=== PATIENT | male | born 1960 | race Caucasian/White ===

== ENCOUNTER 2019-07-21 06:05 | Emergency (ER) | payer BC ==
[2019-07-21] MEDS ORDERED: MECLIZINE HCL 12.5 MG TAB ONE (06:42)
[2019-07-21] MEDS ORDERED: DIAZEPAM 10 MG/2 ML INJ SYRINGE ONE (06:44)
[2019-07-21 06:55] LABS: Absolute Lymphocytes (CBC) 1.5 K/uL (0.7-4.9); Basophils % 0.9 % (0-1.3); Hematocrit 45.7 % (39.6-49.0); Lymphocytes % 19.5 % (15.3-44.8); MPV 8.9 fL (7.6-11.3); Protime INR 0.89
[2019-07-21 06:56] LABS: ALT/SGPT 33 U/L (12-78); AST/SGOT 24 U/L (15-37); Albumin 4.1 g/dL (3.4-5.0); Alkaline Phosphatase 65 U/L (45-117); BUN Blood Urea Nitrogen 24 mg/dL (7-18); Bicarbonate 25 mmol/L (21-32); Bilirubin Direct 0.1 mg/dL (0-0.2); Bilirubin Total 0.5 mg/dL (0.2-1.0); Glucose Level 128 mg/dL (74-106); Magnesium 1.9 mg/dL (1.8-2.4); NT PRO-BNP 11 pg/mL (<125); Potassium 4.1 mmol/L (3.5-5.1); Protein, Total 7.1 g/dL (6.4-8.2); Sodium Level 140 mmol/L (136-145); Troponin (Emerg Dept Use Only) < 0.02 ng/mL (0.0-0.045)
--- NOTE | 2019-07-21 07:08 | RAD REPORT ---
EXAM DESCRIPTION: CT - Head Brain Wo Cont - 07/21/2019 7:02 am CLINICAL HISTORY: Weakness, dizziness COMPARISON: None. TECHNIQUE: Axial 5 mm thick images of the head were obtained without IV contrast. All CT scans are performed using dose optimization technique as appropriate and may include automated exposure control or mA/KV adjustment according to patient size. FINDINGS: No intracranial hemorrhage, mass, edema or shift of mid-line structures. No acute infarcti on changes seen. No measurable atrophy. Minimal chronic ischemic changes are evident. Ventricles are normal. Mastoid air cells and visualized portions of the paranasal sinuses are clear. No acute bony findings. IMPRESSION: Negative non-contrast CT head examination for acute finding.
--- NOTE | 2019-07-21 11:00 | EDPHYS ---
Physician Documentation [facility] Name: Timmy Cooley Jr Age: 59 yrs Sex: Male : 1960 Arrival Date: 07/21/2019 Time: 06:07 Bed 7 Private MD: ED Physician Patric Estrada HPI: 07/21 07:16 This 59 yrs old Male presents to ER via Wheelchair with complaints of Chest jr8 Pain, Dizziness. 07:16 The patient presents with feeling off balance. Onset: The symptoms/episode jr8 began/occurred acutely, this morning. Context: occurred at home, occurred while the patient was at rest, lying down. Modifying factors: The symptoms are alleviated by nothing, the symptoms are aggravated by movement of head, standing up, changing position. Associated signs and symptoms: Pertinent positives: diaphoresis, palpitations. Severity of symptoms: At their worst the symptoms were moderate in the emergency department the symptoms are unchanged. Patient's baseline: Neuro: alert and fully oriented, Motor: no deficits, Ambulation: walks without assistance, Speech: normal. The patient has not experienced similar symptoms in the past. The patient has not recently seen a physician. Patient stated that he has had vertigo in the past which this feels like but also had palpitation feeling with diaphoresis and weakness feeling which he has never had before. Stated that it felt like his heart had "gas". . Historical: - Allergies: 06:19 No Known Allergies; ak1 - Home Meds: 06:19 allopurinol 300 mg Oral tab 1 tab once daily for Gout [Active]; meloxicam 15 mg oral ak1 tab 1 tab once daily [Active]; - PMHx: 06:19 Gout; ak1 - PSHx: 06:19 Appendectomy; Cholecystectomy; Tonsillectomy; Carpal Tunnel Repair; shoulder sx; ak1 - Immunization history:: Adult Immunizations unknown. - Social history:: Smoking status: Patient uses tobacco products, vapes. - Ebola Screening: : No symptoms or risks identified at this time. ROS: 07:16 Eyes: Negative for injury, pain, redness, and discharge, ENT: Negative for injury, jr8 pain, and discharge, Neck: Negative for injury, pain, and swelling, Respiratory: Negative for shortness of breath, cough, wheezing, and pleuritic chest pain, Abdomen/GI: Negative for abdominal pain, nausea, vomiting, diarrhea, and constipation, Back: Negative for injury and pain, MS/Extremity: Negative for injury and deformity, Skin: Negative for injury, rash, and discoloration. 07:16 Cardiovascular: Positive for chest pain, palpitations. 07:16 Neuro: Positive for dizziness, gait disturbance. Exam: 07:16 Eyes: Pupils equal round and reactive to light, extra-ocular motions intact. Lids and jr8 lashes normal. Conjunctiva and sclera are non-icteric and not injected. Cornea within normal limits. Periorbital areas with no swelling, redness, or edema. ENT: Nares patent. No nasal discharge, no septal abnormalities noted. Tympanic membranes are normal and external auditory canals are clear. Oropharynx with no redness, swelling, or masses, exudates, or evidence of obstruction, uvula midline. Mucous membranes moist. Neck: Trachea midline, no thyromegaly or masses palpated, and no cervical lymphadenopathy. Supple, full range of motion without nuchal rigidity, or vertebral point tenderness. No Meningismus. Cardiovascular: Regular rate and rhythm with a normal S1 and S2. No gallops, murmurs, or rubs. Normal PMI, no JVD. No pulse deficits. Respiratory: Lungs have equal breath sounds bilaterally, clear to auscultation and percussion. No rales, rhonchi or wheezes noted. No increased work of breathing, no retractions or nasal flaring. Abdomen/GI: Soft, non-tender, with normal bowel sounds. No distension or tympany. No guarding or rebound. No evidence of tenderness throughout. Back: No spinal tenderness. No costovertebral tenderness. Full range of motion. Skin: Warm, dry with normal turgor. Normal color with no rashes, no lesions, and no evidence of cellulitis. MS/ Extremity: Pulses equal, no cyanosis. Neurovascular intact. Full, normal range of motion. 07:16 Neuro: Orientation: to person, place, time \\T\\ situation. Mentation: is normal, Memory: is normal, immediate memory is intact, recent memory is intact, remote memory is intact, Cranial nerves: CN I not tested, CN II- XII are normal as tested, visual ramirez are intact. extraocular movements are intact, Facial palsy and sensory deficits are absent. Nystagmus is absent. Cerebellar function: normal finger to nose testing, heel to amaya testing is normal, Motor: moves all fours, strength is 5/5 in all extremities, Sensation: no obvious gross deficits, Gait: not tested. seizure activity, is not displayed by the patient, Abnormal movements: there are no abnormal movements. Vital Signs: 06:16 BP 127 / 91; Pulse 69; Resp 22; Temp 97.8; Pulse Ox 94% on R/A; Weight 136.08 kg (R); ak1 Height 6 ft. 1 in. (185.42 cm) (R); Pain 0/10; 06:41 BP 138 / 87; Pulse 64; Resp 17; Pulse Ox 92% on R/A; Pain 0/10; tl1 07:55 BP 126 / 86; Pulse 55; Resp 17; Pulse Ox 96% on R/A; Pain 0/10; sg 08:48 BP 128 / 90; Pulse 52; Resp 17; Pulse Ox 99% on R/A; sg 09:58 BP 129 / 93 LA Supine (auto/reg); Pulse 55; Pulse Ox 95% ; mb4 10:00 Temp 98.9; sg 10:34 BP 129 / 85; Pulse 60 MON; Resp 17 S; Pulse Ox 95% on R/A; sg 06:16 Body Mass Index 39.58 (136.08 kg, 185.42 cm) ak1 MDM: 06:09 Patient medically screened. jr8 08:11 ED course: Patient more relaxed but still feeling dizzy . jr8 10:58 Data reviewed: vital signs, nurses notes, lab test result(s), EKG, radiologic studies, jr CT scan, MRI, plain films. Data interpreted: Pulse oximetry: on room air is 95 %. Interpretation: normal. Counseling: I had a detailed discussion with the patient and/or guardian regarding: the historical points, exam findings, and any diagnostic results supporting the discharge/admit diagnosis, lab results, radiology results, the need for outpatient follow up, a family practitioner, to return to the emergency department if symptoms worsen or persist or if there are any questions or concerns that arise at home. Response to treatment: the patient's symptoms have markedly improved after treatment. ED course: Patient feeling better after medication now. MRI negative. Labs unremarkable. Will send home with vertigo medications . 07/21 06:14 Order name: Basic Metabolic Panel; Complete Time: 07:11 07/21 06:14 Order name: CBC with Diff; Complete Time: 07:11 07/21 06:14 Order name: LFT's; Complete Time: 07:11 07/21 06:14 Order name: Magnesium; Complete Time: 07:11 07/21 06:14 Order name: NT PRO-BNP; Complete Time: 07:11 07/21 06:14 Order name: PT-INR; Complete Time: 07:36 07/21 06:14 Order name: Troponin (emerg Dept Use Only); Complete Time: 07:11 07/21 06:14 Order name: XRAY Chest (1 view) 07/21 06:14 Order name: EKG; Complete Time: 06:17 07/21 06:14 Order name: Cardiac monitoring; Complete Time: 06:07/21 06:31 Order name: CT Head Brain wo Cont; Complete Time: 07:11 07/21 08:11 Order name: MRI - Brain Wo Cont 07/21 06:14 Order name: EKG - Nurse/Tech; Complete Time: 06:07/21 06:14 Order name: IV Saline Lock; Complete Time: 06:07/21 06:14 Order name: Labs collected and sent; Complete Time: 06:07/21 06:14 Order name: O2 Per Protocol; Complete Time: 06:07/21 06:14 Order name: O2 Sat Monitoring; Complete Time: 06: Administered Medications: 06:42 Drug: Meclizine 25 mg Route: PO; tl1 07:30 Follow up: Response: No adverse reaction sg 06:43 Drug: Valium 2 mg Route: IVP; Infused Over: 2 mins; Site: right antecubital; tl1 07:30 Follow up: Response: No adverse reaction sg Disposition: 11:28 Co-signature as Attending Physician, Patric Estrada MD I agree with the assessment and charles plan of care. Disposition: 07/21/19 10:59 Discharged to Home. Impression: Other peripheral vertigo. - Condition is Stable. - Prescriptions for Meclizine 25 mg Oral Tablet - take 1 tablet by ORAL route every 8 hours As needed; 30 tablet. Valium 2 mg Oral Tablet - take 1 tablet by ORAL route every 8 hours As needed; 20 tablet. - Work release form, Medication Reconciliation Form, Thank You Letter, Antibiotic Education, Prescription Opioid Use form. - Follow up: Private Physician; When: 5 - 6 days; Reason: Recheck today's complaints, Continuance of care, Re-evaluation by your physician. - Problem is new. - Symptoms have improved. Signatures: Dispatcher [employer] EDIL Patric Estrada MD MD cha Calderon, Audri, RN RN aa5 Michael Geronimo PA PA jr8 Sasha Avalos RN RN tl1 Whitney Adame RN RN ak1 Jos Guerra RN sg Corrections: (The following items were deleted from the chart) 11:11 10:59 07/21/2019 10:59 Discharged to Home. Impression: Other peripheral vertigo. aa5 Condition is Stable. Forms are Medication Reconciliation Form, Thank You Letter, Antibiotic Education, Prescription Opioid Use. Follow up: Private Physician; When: 5 - 6 days; Reason: Recheck today's complaints, Continuance of care, Re-evaluation by your physician. Problem is new. Symptoms have improved. jr8
--- NOTE | 2019-07-21 11:00 | ER ---
Nurse's Notes [facility] Name: Timmy Cooley Jr Age: 59 yrs Sex: Male : 1960 Arrival Date: 07/21/2019 Time: 06:07 Bed 7 Private MD: Diagnosis: Other peripheral vertigo Presentation: 07/21 06:16 Presenting complaint: Patient states: at 0300 woke up dizzy. pt denies chest pain. pt ak1 c/o feeling "unbalanced or like water in my ears". Transition of care: patient was not received from another setting of care. Onset of symptoms was July 21, 2019. Risk Assessment: Do you want to hurt yourself or someone else? Patient reports no desire to harm self or others. Initial Sepsis Screen: Does the patient meet any 2 criteria? No. Patient's initial sepsis screen is negative. Does the patient have a suspected source of infection? No. Patient's initial sepsis screen is negative. Care prior to arrival: None. 06:16 Method Of Arrival: Wheelchair ak1 06:16 Acuity: CHRIS 3 ak1 Triage Assessment: 06:19 General: Appears uncomfortable, Behavior is calm, cooperative. ak1 Historical: - Allergies: 06:19 No Known Allergies; ak1 - Home Meds: 06:19 allopurinol 300 mg Oral tab 1 tab once daily for Gout [Active]; meloxicam 15 mg oral ak1 tab 1 tab once daily [Active]; - PMHx: 06:19 Gout; ak1 - PSHx: 06:19 Appendectomy; Cholecystectomy; Tonsillectomy; Carpal Tunnel Repair; shoulder sx; ak1 - Immunization history:: Adult Immunizations unknown. - Social history:: Smoking status: Patient uses tobacco products, vapes. - Ebola Screening: : No symptoms or risks identified at this time. Screenin:29 Abuse screen: Denies threats or abuse. Denies injuries from another. Nutritional tl1 screening: No deficits noted. Tuberculosis screening: No symptoms or risk factors identified. Fall Risk IV access (20 points). Assessment: 06:37 General: Appears in no apparent distress. Behavior is calm, cooperative, appropriate tl1 for age. Pain: Denies pain. Pain: Pain does not radiate. Pain began 3 hours ago. RESOLVED NOW. 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 Speech is normal, Facial symmetry appears normal, Pupils are PERRLA, Intact Reports dizziness, since 0300. Cardiovascular: Denies chest pain, PT STATES HE WOKE UP AT 0300 WITH CHEST PAIN THAT IS RESOLVED NOW Capillary refill < 3 seconds Patient's skin is warm and dry. Rhythm is sinus rhythm. Respiratory: Airway is patent Trachea midline Respiratory effort is even, unlabored, Respiratory pattern is regular, symmetrical, Breath sounds are clear bilaterally. GI: Abdomen is round non-distended, Bowel sounds present X 4 quads. Abd is soft and non tender X 4 quads. : No signs and/or symptoms were reported regarding the genitourinary system. EENT: Reports STATES EARS FEEL FULL. 07:00 Reassessment: Patient appears in no apparent distress at this time. Patient and/or sg family updated on plan of care and expected duration. Pain level reassessed. pt returned from CT at this time. 09:54 Reassessment: Patient appears in no apparent distress at this time. Patient and/or sg family updated on plan of care and expected duration. Pain level reassessed. Patient is alert, oriented x 3, equal unlabored respirations, skin warm/dry/pink. pt transported back from MRI at this time, placed back to monitors, pt family remains at bedside, bed in low and locked position the call light is within reach and the srx1 are up, no new orders received, awaiting results at this time, pt and pt family stated understanding, will continue to monitor Patient denies pain at this time. Vital Signs: 06:16 BP 127 / 91; Pulse 69; Resp 22; Temp 97.8; Pulse Ox 94% on R/A; Weight 136.08 kg (R); ak1 Height 6 ft. 1 in. (185.42 cm) (R); Pain 0/10; 06:41 BP 138 / 87; Pulse 64; Resp 17; Pulse Ox 92% on R/A; Pain 0/10; tl1 07:55 BP 126 / 86; Pulse 55; Resp 17; Pulse Ox 96% on R/A; Pain 0/10; sg 08:48 BP 128 / 90; Pulse 52; Resp 17; Pulse Ox 99% on R/A; sg 09:58 BP 129 / 93 LA Supine (auto/reg); Pulse 55; Pulse Ox 95% ; mb4 10:00 Temp 98.9; sg 10:34 BP 129 / 85; Pulse 60 MON; Resp 17 S; Pulse Ox 95% on R/A; sg 06:16 Body Mass Index 39.58 (136.08 kg, 185.42 cm) ak1 ED Course: 06:07 Patient arrived in ED. ds1 06:08 Michael Geronimo PA is PHCP. jr8 06:09 Patric Estrada MD is Attending Physician. jr8 06:17 Triage completed. ak1 06:19 Arm band placed on Patient placed in an exam room, on a stretcher, on pulse oximetry, ak1 Patient notified of wait time. 06:28 Sasha Avalos RN is Primary Nurse. tl1 06:28 No provider procedures requiring assistance completed. Inserted saline lock: 20 gauge tl1 in right antecubital area, using aseptic technique. Blood collected. 06:47 X-ray completed. Portable x-ray completed in exam room. Patient tolerated procedure kw well. 06:50 XRAY Chest (1 view) In Process Unspecified. EDMS 07:03 CT completed. Patient tolerated procedure well. Patient moved to CT via stretcher. Patient moved back from CT. 07:04 CT Head Brain wo Cont In Process Unspecified. EDMS 07:09 Primary Nurse role handed off by Sasha Avalos, SONYA 07:09 Jos Guerra, RN is Primary Nurse. sg 09:16 Awaiting: MRI. sg 09:17 Patient moved to MRI via wheelchair. sg 09:35 MRI - Brain Wo Cont In Process Unspecified. EDMS 09:53 Patient moved back from MRI. sg 10:34 Awaiting radiology results. sg Administered Medications: 06:42 Drug: Meclizine 25 mg Route: PO; tl1 07:30 Follow up: Response: No adverse reaction sg 06:43 Drug: Valium 2 mg Route: IVP; Infused Over: 2 mins; Site: right antecubital; tl1 07:30 Follow up: Response: No adverse reaction sg Outcome: 10:59 Discharge ordered by . jr8 11:11 Patient left the ED. aa5 Signatures: Dispatcher [employer] EDSD Jos Guerra, RN RN Frederick Franklin Demi ds1 Angeles Cartagena, RN RN aa5 Consuelo Velazco Josh, PA PA jr8 Sasha Avalos, RN RN tl1 Whitney Adame, RN RN ak1 Natalie Ng 4
--- NOTE | 2019-07-21 11:11 | RAD REPORT ---
EXAM DESCRIPTION: RAD - Chest Single View - 07/21/2019 6:46 am CLINICAL HISTORY: Chest pain COMPARISON: None. TECHNIQUE: AP portable chest image was obtained 0639 hour . FINDINGS: No focal lung parenchymal process. Interstitial markings are mildly prominent believed to be baseline. Lung markings are accentuated by portable technique and shallow inspiration. Heart and vasculature are normal. No measurable pleural effusion and no pneumothorax. No acute bony abnormality seen. No acute aortic findings suspected. IMPRESSION: No acute cardiopulmonary process.
[2019-07-21 11:26] VITALS: O2SAT 95
[2019-07-21 11:27] VITALS: TEMP 98.9
[2019-07-21 11:28] VITALS: BP 129/85
--- NOTE | 2019-07-21 12:18 | RAD REPORT ---
EXAM DESCRIPTION: MRI - Brain Wo Cont - 07/21/2019 11:11 am CLINICAL HISTORY: Dizziness;Numbness Headache, dizziness, CVA symptomology COMPARISON: Head Brain Wo Cont dated 07/21/2019 TECHNIQUE: Multi-sequence, multiplanar MR imaging of the brain was performed without contrast. FINDINGS: No intracranial hemorrhage, hydrocephalus or extra-axial fluid collections. No edema or sh ift of midline structures. No findings to suspect brain mass. DWI is negative for acute CVA. Midline structures are normally formed. Mastoid air cells and paranasal sinuses are clear. IMPRESSION: Negative for acute CVA or other acute intracranial abnormality.
--- NOTE | 2019-07-22 08:41 | EKG ---
Test Date: 2019-07-21 Test Time: 06:22:30 Lead Care Manager: PATRIC MEASUREMENT RESULTS: Intervals: Rate: 60 SC: 164 QRSD: 88 QT: 380 QTc: 380 Spring: P: 13 SC: 164 QRS: 47 T: 27 INTERPRETIVE STATEMENTS: Normal sinus rhythm Normal ECG No previous ECG available for comparison Electronically Signed On 07-22-19 08:39:56 CDT by Kamari Yan
== END 2019-07-21 11:11 | disposition home or self-care (01) ==
LOC: ER 06:05
DX: H81.399 Other peripheral vertigo, unspecified ear (principal); M10.9 Gout, unspecified; Z23 Encounter for immunization
CPT/HCPCS: 93005; 85025; 80048; 36415; 83735; 85610; 80076; 84484; 83880; 70450; 71045; 70551; 96374; 99285; J3360

== ENCOUNTER 2022-05-12 12:52 | Emergency (ER) | payer OTHER, BC ==
[2022-05-12] MEDS ORDERED: NA CHLORIDE 0.9% 1,000 ML ONE (13:34)
--- NOTE | 2022-05-12 14:01 | RAD REPORT ---
EXAM DESCRIPTION: CT - Head Brain Wo Cont - 05/12/2022 1:49 pm CLINICAL HISTORY: Headache COMPARISON: 2019 TECHNIQUE: Computed axial tomography of the head was obtained. IV contrast was not requested. All CT scans are performed using dose optimization technique as appropriate and may include automated exposure control or mA/KV adjustment according to patient size. FINDINGS: An intracranial bleed is not seen . The ventricles are normal in caliber. No significant hypodense areas within the brain visualized No extra-axial fluid collection is noted. Fluid within the sinuses/ mastoids is not seen. IMPRESSION: No acute intracranial abnormality is seen. If patient's symptoms persist MRI of the bra in would be recommended.
[2022-05-12 14:06] LABS: Specific Gravity 1.025 (1.005-1.030); Urine Bilirubin Negative (Negative); Urine Blood Negative (Negative); Urine Clarity Clear (Clear); Urine Color Yellow (Yellow); Urine Glucose Negative (Negative); Urine Protein Negative (Negative); Urine Urobilinogen 0.2 mg/dL (0.2-1.0)
--- NOTE | 2022-05-12 14:06 | RAD REPORT ---
EXAM DESCRIPTION: Carlos Single View05/12/2022 1:43 pm CLINICAL HISTORY: Chest pain COMPARISON: none FINDINGS: The lungs appear clear of acute infiltrate. The heart is normal size IMPRESSION: No acute abnormalities displayed
[2022-05-12 14:08] LABS: Absolute Lymphocytes (CBC) 1.9 K/uL (0.7-4.9); Hematocrit 45.2 % (39.6-49.0); MCV 91.6 fL (80-100); RBC Red Blood Cell Count 4.93 M/uL (4.33-5.43)
[2022-05-12 14:22] LABS: Potassium 3.7 mmol/L (3.5-5.1); Troponin High Sensitivity 6.2 pg/mL (<58.9)
[2022-05-12] MEDS ORDERED: METOCLOPRAMIDE 10 MG/2mL INJ ONE (15:07)
[2022-05-12] MEDS ORDERED: KETOROLAC 30 MG/ML INJ ONE (15:08)
--- NOTE | 2022-05-12 15:57 | ER ---
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 Pt reports he feels better now other than a mild headache. PT initially did not want to come to ED for evaluation, but medical personnel on work site suggested to him he still come. Coronavirus screen: Client denies travel out of the [place] in the last 14 days. Ebola Screen: Patient denies exposure to infectious person. Patient denies travel to an Ebola-affected area in the 21 days before illness onset. Initial Sepsis Screen: Does the patient meet any 2 criteria? No. Patient's initial sepsis screen is negative. Does the patient have a suspected source of infection? No. Patient's initial sepsis screen is negative. Risk Assessment: Do you want to hurt yourself or someone else? Patient reports no desire to harm self or others. Onset of symptoms was May 12, 2022. 12:58 Method Of Arrival: Ambulatory ss 12:58 Acuity: CHRIS 3 ss Triage Assessment: 13:48 General: Appears in no apparent distress. comfortable, Behavior is calm, cooperative, eh3 appropriate for age. Pain:. Neuro: Level of Consciousness is awake, alert, obeys commands, Oriented to person, place, time, situation. 14:05 Headache History: Denies prior headaches. Pain: Complains of pain in forehead, in eh3 between the eyes Pain currently is 4 out of 10 on a pain scale. Pain began suddenly, 2 hours ago. Also complains of diaphoresis, inability to work. EENT: No signs and/or symptoms were reported regarding the EENT system. Cardiovascular: Capillary refill < 3 seconds Patient's skin is warm and dry. Respiratory: Airway is patent Respiratory effort is even, unlabored. GI: No signs and/or symptoms were reported involving the gastrointestinal system. : No signs and/or symptoms were reported regarding the genitourinary system. Derm: No signs and/or symptoms reported regarding the dermatologic system. Musculoskeletal: No signs and/or symptoms reported regarding the musculoskeletal system. Historical: - Allergies: 13:08 No Known Allergies; ss - Home Meds: 13:08 allopurinol 300 mg Oral tab 1 tab once daily for Gout [Active]; ss - PMHx: 13:08 Gout; ss - PSHx: 13:09 Appendectomy; Cholecystectomy; ss - Immunization history:: Client reports having NOT received the Covid vaccine. - Social history:: Smoking status: Patient reports the use of cigarette tobacco products, smokes one-half pack cigarettes per day, Reported history of juuling and/or vaping. Screenin:07 Abuse screen: Denies threats or abuse. Denies injuries from another. Nutritional eh3 screening: No deficits noted. Tuberculosis screening: No symptoms or risk factors identified. Fall Risk None identified. Assessment: 14:07 Reassessment: No changes from previously documented assessment. Pain: Complains of pain eh3 in forehead Pain currently is 4 out of 10 on a pain scale. Vital Signs: 12:58 BP 122 / 72; Pulse 63; Resp 16; Pulse Ox 94% on R/A; Weight 114.31 kg; Height 6 ft. 0 ss in. (182.88 cm); Pain 0/10; 14:05 BP 126 / 81; Pulse 56; Resp 20; Pulse Ox 95% on R/A; Pain 4/10; eh3 14:33 BP 118 / 84; Pulse 53; Resp 21; Pulse Ox 94% on R/A; ld1 15:15 BP 134 / 84; Pulse 57; Resp 22; Pulse Ox 94% on R/A; eh3 12:58 Body Mass Index 34.18 (114.31 kg, 182.88 cm) ED Course: 12:55 Patient arrived in ED. ld1 12:56 [place] is PHCP. jl9 12:56 Amandeep Lara DO is Attending Physician. jl9 13:08 Triage completed. ss 13:09 Arm band placed on right wrist. ss 13:33 Janel Magana, RN is Primary Nurse. ld1 13:45 XRAY Chest (1 view) In Process Unspecified. EDMS 13:51 Head Brain Wo Cont CT In Process Unspecified. EDMS 14:05 Basic Metabolic Panel Sent. eh3 14:05 CBC with Diff Sent. eh3 14:05 Troponin HS Sent. eh3 14:07 Patient has correct armband on for positive identification. Placed in gown. Bed in low eh3 position. Call light in reach. Side rails up X2. 14:07 Maintain EMS IV. Dressing intact. Good blood return noted. Site clean \T\ dry. Gauge \T\ eh 3 site: 18g RAC. 15:54 No provider procedures requiring assistance completed. eh3 16:17 IV discontinued, intact, bleeding controlled, No redness/swelling at site. Pressure eh3 dressing applied. Administered Medications: 13:57 Drug: NS 0.9% 1000 ml Route: IV; Rate: 1000 ml; Site: right antecubital; eh3 15:15 Drug: Ketorolac 30 mg Route: IVP; Site: right antecubital; eh3 15:15 Drug: Reglan (metoCLOPramide) 10 mg Route: IVP; Site: right antecubital; eh3 Medication: 15:54 VIS not applicable for this client. 3 Outcome: 15:56 Discharge ordered by MD. nettles 16:17 Discharged to home ambulatory. eh3 16:17 Condition: stable 16:17 Discharge instructions given to patient, Instructed on discharge instructions, follow up and referral plans. Demonstrated understanding of instructions, follow-up care. 16:18 Patient left the ED. 3 Signatures: Dispatcher [employer] EDMS Avis Dennis RN RN Loli Ng RN RN Janel Magana RN RN ld1 Keiry Haque [facility] [place] Corrections: (The following items were deleted from the chart) 14:10 13:47 Reassessment: 3 eh3 14:37 14:04 URINALYSIS+U.LAB.BRZ drawn and sent. 3 EDMS 15:14 15:11 Reglan (metoCLOPramide) 10 mg IVP in right antecubital hb hb 15:14 15:12 Ketorolac 30 mg IVP in right antecubital hb hb 15:14 15:12 BP 135 / 84; Pulse 57bpm; Resp 22bpm; Pulse Ox 94% RA; hb hb
--- NOTE | 2022-05-12 15:57 | EDPHYS ---
Physician Documentation [facility] Name: Timmy Cooley Jr Age: 62 yrs Sex: Male : 1960 Arrival Date: 05/12/2022 Time: 12:55 Bed Treatment Private MD: ED Physician Amandeep Lara HPI: 05/12 13:48 This 62 yrs old Male presents to ER via Ambulatory with complaints of General jl9 Weakness, Headache. 13:48 Onset: The symptoms/episode began/occurred acutely. Associated signs and symptoms: jl9 Pertinent positives: headache. Modifying factors: the patient symptoms are aggravated by nothing. The patient has experienced similar episodes in the past, several times. The patient has not recently seen a physician. Patient reports being at work when he had a sudden onset of feeling lightheaded and developed a headache. . Historical: - Allergies: 13:08 No Known Allergies; ss - Home Meds: 13:08 allopurinol 300 mg Oral tab 1 tab once daily for Gout [Active]; ss - PMHx: 13:08 Gout; ss - PSHx: 13:09 Appendectomy; Cholecystectomy; ss - Immunization history:: Client reports having NOT received the Covid vaccine. - Social history:: Smoking status: Patient reports the use of cigarette tobacco products, smokes one-half pack cigarettes per day, Reported history of juuling and/or vaping. ROS: 14:47 Constitutional: Negative for fever, chills, and weight loss, Eyes: Negative for injury, jl9 pain, redness, and discharge, ENT: Negative for injury, pain, and discharge, Neck: Negative for injury, pain, and swelling, Cardiovascular: Negative for chest pain, palpitations, and edema, Respiratory: Negative for shortness of breath, cough, wheezing, and pleuritic chest pain, Abdomen/GI: Negative for abdominal pain, nausea, vomiting, diarrhea, and constipation, Back: Negative for injury and pain, : Negative for injury, bleeding, discharge, and swelling, MS/Extremity: Negative for injury and deformity, Skin: Negative for injury, rash, and discoloration, Neuro: Negative for headache, weakness, numbness, tingling, and seizure. Exam: 14:47 Constitutional: This is a well developed, well nourished patient who is awake, alert, jl9 and in no acute distress. Head/Face: Normocephalic, atraumatic. Eyes: Pupils equal round and reactive to light, extra-ocular motions intact. Lids and lashes normal. Conjunctiva and sclera are non-icteric and not injected. Cornea within normal limits. Periorbital areas with no swelling, redness, or edema. ENT: Mucous membranes moist. Neck: Trachea midline, no thyromegaly or masses palpated, and no cervical lymphadenopathy. Supple, full range of motion without nuchal rigidity, or vertebral point tenderness. No Meningismus. Chest/axilla: Normal chest wall appearance and motion. Nontender with no deformity. No lesions are appreciated. Cardiovascular: Regular rate and rhythm with a normal S1 and S2. No gallops, murmurs, or rubs. Normal PMI, no JVD. No pulse deficits. Respiratory: Lungs have equal breath sounds bilaterally, clear to auscultation and percussion. No rales, rhonchi or wheezes noted. No increased work of breathing, no retractions or nasal flaring. Abdomen/GI: Soft, non-tender, with normal bowel sounds. No distension or tympany. No guarding or rebound. No evidence of tenderness throughout. Back: No spinal tenderness. No costovertebral tenderness. Full range of motion. Skin: Warm, dry with normal turgor. Normal color with no rashes, no lesions, and no evidence of cellulitis. Vital Signs: 12:58 BP 122 / 72; Pulse 63; Resp 16; Pulse Ox 94% on R/A; Weight 114.31 kg; Height 6 ft. 0 ss in. (182.88 cm); Pain 0/10; 14:05 BP 126 / 81; Pulse 56; Resp 20; Pulse Ox 95% on R/A; Pain 4/10; eh3 14:33 BP 118 / 84; Pulse 53; Resp 21; Pulse Ox 94% on R/A; ld1 15:15 BP 134 / 84; Pulse 57; Resp 22; Pulse Ox 94% on R/A; eh3 12:58 Body Mass Index 34.18 (114.31 kg, 182.88 cm) ss MDM: 12:56 Patient medically screened. 9 15:54 Data reviewed: vital signs, nurses notes. 05/12 13:20 Order name: Basic Metabolic Panel; Complete Time: 14:46 05/12 13:20 Order name: CBC with Diff; Complete Time: 14:46 05/12 13:20 Order name: Troponin HS; Complete Time: 14:46 05/12 13:20 Order name: XRAY Chest (1 view); Complete Time: 14:08 05/12 14:06 Order name: Urinalysis; Complete Time: 14:46 EDMS 05/12 13:20 Order name: EKG; Complete Time: 13:21 05/12 13:20 Order name: Cardiac monitoring; Complete Time: 13:24 05/12 13:20 Order name: EKG - Nurse/Tech; Complete Time: 14:05 05/12 13:20 Order name: IV Saline Lock; Complete Time: 14:05 05/12 13:20 Order name: Head Brain Wo Cont CT; Complete Time: 14:08 05/12 13:20 Order name: Labs collected and sent; Complete Time: 14:05 05/12 13:20 Order name: O2 Per Protocol; Complete Time: 13:24 05/12 13:20 Order name: O2 Sat Monitoring; Complete Time: 13:24 Administered Medications: 13:57 Drug: NS 0.9% 1000 ml Route: IV; Rate: 1000 ml; Site: right antecubital; 3 15:15 Drug: Ketorolac 30 mg Route: IVP; Site: right antecubital; eh3 15:15 Drug: Reglan (metoCLOPramide) 10 mg Route: IVP; Site: right antecubital; eh3 Disposition: 22:06 Co-signature as Attending Physician, Amandeep LOMAS was immediately available on-site ms3 in the Emergency Department for consultation in the care of the patient. . Disposition Summary: 05/12/22 15:56 Discharge Ordered Location: Home jl9 Condition: Stable jl9 Diagnosis - Muscle weakness (generalized) jl9 - Headache jl9 - Other peripheral vertigo jl9 Followup: jl9 - With: Private Physician - When: 1 - 2 days - Reason: Further diagnostic work-up, Recheck today's complaints, Continuance of care, Re-evaluation by your physician Discharge Instructions: - Discharge Summary Sheet jl9 - Weakness jl9 - Acupuncture jl9 - Vertigo, Stbh-ax-Qcpt jl9 Forms: - Medication Reconciliation Form jl9 - Thank You Letter jl9 - Antibiotic Education jl9 - Prescription Opioid Use jl9 Signatures: Dispatcher [employer] EDMS Avis Dennis RN RN Loli Ng RN RN Amandeep Lara, DO ms3 Keiry Haque eh3 [place] jl9 Corrections: (The following items were deleted from the chart) 13:23 13:21 BASIC METABOLIC PANEL+C.LAB.BRZ ordered. EDMS EDMS 13:23 13:21 CBC+H.LAB.BRZ ordered. EDMS EDMS 13:23 13:21 Troponin High Sensitivity+C.LAB.BRZ ordered. EDMS EDMS 14:37 13:21 URINALYSIS+U.LAB.BRZ ordered. EDMS EDMS
[2022-05-12 16:29] VITALS: O2SAT 94
[2022-05-12 16:30] VITALS: BP 134/84
--- NOTE | 2022-05-13 08:17 | EKG ---
Test Date: 2022-05-12 Test Time: 14:00:51 [place] Room Worker: NIVIA MEASUREMENT RESULTS: Intervals: Rate: 56 [place]: 166 QRSD: 88 QT: 398 QTc: 384 [place]: P: 29 [place]: 166 QRS: 54 T: 31 INTERPRETIVE STATEMENTS: Sinus bradycardia Otherwise normal ECG Compared to ECG 07/21/2019 06:22:30 Sinus rhythm no longer present Electronically Signed On 05-13-22 08:12:44 CDT by Rene Mai
== END 2022-05-12 16:18 | disposition home or self-care (01) ==
LOC: ER 12:52
DX: M62.81 Muscle weakness (generalized) (principal); R51.9 Headache, unspecified; H81.399 Other peripheral vertigo, unspecified ear; F17.210 Nicotine dependence, cigarettes, uncomplicated
CPT/HCPCS: 36415; 70450; 71045; 80048; 81003; 84484; 85025; 93005; 96374; 96375; 99284; J2765; J7030